=== PATIENT | male | born 1960 | race Caucasian/White ===

== ENCOUNTER → 2021-02-02 | Outpatient (CLI) | payer OTHER ==
[~2021-02-02] MED LIST: RT-ALBUTEROL SULF 2.5 MG/3 ML PRE-MIX VIAL INH ONE
--- NOTE | 2021-02-02 15:14 | Diagnostic Imaging Report ---
Indication: COPD. Time of exam: 12:18 PM No prior studies available for comparison. Heart size normal. There is some ectasia and tortuosity of the descending thoracic aorta. There appears to be some minimal discoid atelectasis in both bases. Mid and upper lung youngblood are clear. No effusion or pneumothorax is seen. Impression: Bibasilar subsegmental atelectasis. Dictated by: Dictated on workstation # [id number]
== END ==
LOC: RT 11:00
PROVIDERS: ATTEND Anesthesiology Pain Medicine
DX: Z02.71 Encounter for disability determination (principal); J44.9 Chronic obstructive pulmonary disease, unspecified
CPT/HCPCS: 71046; 94060; 94729